=== PATIENT | female | born 1930 | race Caucasian/White ===

== ENCOUNTER 2018-04-02 19:20 | Emergency (ER) | payer MEDICARE, OTHER ==
[~2018-04-02] VITALS: Ht 160 cm; Wt 74.8 kg
[2018-04-02] MEDS ORDERED: NS IV 500 ML 500 ML IV ONE (19:29)
[2018-04-02] MEDS ORDERED: fentaNYL INJECTION 100 MCG/2 ML AMP IVP ONE (19:30)
[2018-04-02 19:37] LABS: BASOPHILS # (AUTO) 0.1 10^3/uL (0.0-0.1); BASOPHILS % (AUTO) 1 % (0-10); EOSINOPHILS # (AUTO) 0.4 10^3/uL (0.0-0.3); EOSINOPHILS % (AUTO) 4 % (0-10); HEMATOCRIT 29 % (35-52); HEMOGLOBIN 9.4 G/DL (11.5-16.0); LYMPHOCYTES # (AUTO) 5.1 X 10^3 (1.0-4.0); LYMPHOCYTES % (AUTO) 53 % (12-44); MEAN CORPUSCULAR HEMOGLOBIN 29 PG (25-34); MEAN CORPUSCULAR HGB CONC 33 G/DL (32-36); MEAN CORPUSCULAR VOLUME 89 FL (80-99); MEAN PLATELET VOLUME 11.5 FL (7.4-10.4); MONOCYTES # (AUTO) 0.8 X 10^3 (0.0-1.0); MONOCYTES % (AUTO) 8 % (0-12); NEUTROPHILS # (AUTO) 3.5 X 10^3 (1.8-7.8); NEUTROPHILS % (AUTO) 35 % (42-75); PLATELET COUNT 258 10^3/uL (130-400); RED BLOOD COUNT 3.22 10^6/uL (4.35-5.85); RED CELL DISTRIBUTION WIDTH 13.2 % (10.0-14.5); WHITE BLOOD COUNT 9.8 10^3/uL (4.3-11.0)
--- NOTE | 2018-04-02 19:39 | ED Syncope ---
General Stated Complaint: FALL @ [facility] Source of Information: Patient Exam Limitations: Physical Impairments History of Present Illness Date Seen by Provider: Apr 02, 2018 Time Seen by Provider: 19:26 Initial Comments Patient presents to the ER by EMS from the [facility] where staff stated that they witnessed her black out and fall of the ground striking her head and cutting her head open. They bandaged up her head and got the bleeding to stop by the time EMS got there. EMS reports that the sugar was reading as to high so they started fluids. Patient says this morning her blood sugar was around 347. She is diabetic and uses Levemir 16 units in the morning and 10 units at night and 2 units of NovoLog with each meal. She has not noted any nausea vomiting chest pain, fevers chills or sweats, dysuria or frequency of urine. She says she does not member what happened she was just with her at the [facility] when she blacked out. She woke up on the EMS cot. Patient states she is on blood thinners but cannot tell me what. She has a wound previously from running into a couch on her left brannon that is bandaged and she is on amoxicillin because she said it was looking infected. She follows with a doctor at [place], [place]. She is not feeling any nausea but she is having some pain over her right eye where the dressing is. Allergies and Home Medications Allergies Coded Allergies: Sulfa (Sulfonamide Antibiotics) (Verified Allergy, Unknown, 04/02/18) cetylpyridinium chloride (Verified Allergy, Unknown, 04/02/18) Patient Home Medication List Home Medication List Reviewed: Yes Constitutional: No chills, No diaphoresis, No fever, No malaise EENTM: hearing loss (chronic); No ear discharge, No ear pain Respiratory: No cough Cardiovascular: No chest pain, No palpitations; syncope Gastrointestinal: No abdominal pain, No constipation, No diarrhea, No nausea Genitourinary: No discharge, No dysuria Musculoskeletal: No back pain; joint pain (right hand fifth digit metatarsal) Skin: other (skin tear on her right hand and scalp) Past Dxvwvza-Viogjn-Ltrlyx Hx Patient Social History Alcohol Use: Denies Use Recreational Drug Use: No Smoking Status: Never a Smoker Physical Exam Vital Signs Vital Signs - First Documented 04/02/18 19:20 Pulse 74 Resp 20 B/P (MAP) 192/78 (116) Pulse Ox 97 O2 Delivery Room Air Capillary Refill : General Appearance: No Apparent Distress, WD/WN HEENT: PERRL/EOMI, Pharynx Normal; No Moist Mucous Membranes Neck: Tender Lateral (right), Other (c-collar in place) Cardiovascular: Regular Rate, Rhythm, No Edema, Normal Peripheral Pulses Respiratory: Chest Non Tender, Lungs Clear, Normal Breath Sounds, No Accessory Muscle Use, No Respiratory Distress Gastrointestinal: Normal Bowel Sounds, Non Tender, Soft Extremities: Normal Capillary Refill, Normal Inspection, Normal Range of Motion , Non Tender, No Calf Tenderness Neurologic/Psychiatric: Alert, Oriented x3, No Motor/Sensory Deficits, Normal Mood/Affect Cranial Nerves: Normal Hearing (chronic bilateral hearing loss), Normal Speech , PERRL Motor/Sensory: No Motor Deficit, No Sensory Deficit, No Pronator Drift, Negative Babinski's Sign Skin: Other (scalp laceration and skin laceration to right hand; stellate laceration above the right eye approximately 6 cm total length. Hemostatic. 1 cm superficial skin tear with a flap on the outside of the right hand fifth metatarsal.) Progress/Results/Core Measures Results/Orders Lab Results Laboratory Tests Test 04/02/18 19:28 04/02/18 19:29 Range/Units Glucometer 503 *H 70-110 MG/DL White Blood Count 9.8 4.3-11.0 10^3/uL Red Blood Count 3.22 L 4.35-5.85 10^6/uL Hemoglobin 9.4 L 11.5-16.0 G/DL Hematocrit 29 L 35-52 % Mean Corpuscular Volume 89 80-99 FL Mean Corpuscular Hemoglobin 29 25-34 PG Mean Corpuscular Hemoglobin Concent 33 32-36 G/DL Red Cell Distribution Width 13.2 10.0-14.5 % Platelet Count 258 130-400 10^3/uL Mean Platelet Volume 11.5 H 7.4-10.4 FL Neutrophils (%) (Auto) 35 L 42-75 % Lymphocytes (%) (Auto) 53 H 12-44 % Monocytes (%) (Auto) 8 0-12 % Eosinophils (%) (Auto) 4 0-10 % Basophils (%) (Auto) 1 0-10 % Neutrophils # (Auto) 3.5 1.8-7.8 X 10^3 Lymphocytes # (Auto) 5.1 H 1.0-4.0 X 10^3 Monocytes # (Auto) 0.8 0.0-1.0 X 10^3 Eosinophils # (Auto) 0.4 H 0.0-0.3 10^3/uL Basophils # (Auto) 0.1 0.0-0.1 10^3/uL Sodium Level 132 L 135-145 MMOL/L Potassium Level 4.3 3.6-5.0 MMOL/L Chloride Level 99 98-107 MMOL/L Carbon Dioxide Level 21 21-32 MMOL/L Anion Gap 12 5-14 MMOL/L Blood Urea Nitrogen 28 H 7-18 MG/DL Creatinine 1.47 H 0.60-1.30 MG/DL Estimat Glomerular Filtration Rate 34 BUN/Creatinine Ratio 19 Glucose Level 516 *H 70-105 MG/DL Calcium Level 8.6 8.5-10.1 MG/DL Magnesium Level 1.7 L 1.8-2.4 MG/DL Total Bilirubin 0.5 0.1-1.0 MG/DL Aspartate Amino Transf (AST/SGOT) 15 5-34 U/L Alanine Aminotransferase (ALT/SGPT) 14 0-55 U/L Alkaline Phosphatase 68 40-136 U/L Troponin I < 0.30 <0.30 NG/ML B-Type Natriuretic Peptide 68.5 <100.0 PG/ML Total Protein 6.1 L 6.4-8.2 GM/DL Albumin 3.7 3.2-4.5 GM/DL My Orders Orders - CELENA ABAD BNP (04/02/18 19:29) Cbc With Automated Diff (04/02/18 19:29) Comprehensive Metabolic Panel (04/02/18 19:29) Magnesium (04/02/18 19:29) Troponin I (04/02/18 19:29) Ua Culture If Indicated (04/02/18 19:29) Ct Head/Face/Cervical Wo (04/02/18 19:29) Saline Lock/Iv-Start (04/02/18 19:29) Chest 1 View, Ap/Pa Only (04/02/18 19:29) Hand, Right, 3 Views (04/02/18 19:29) Saline Lock/Iv-Start (04/02/18 19:29) Ns Iv 500 Ml (Sodium Chloride 0.9%) (04/02/18 19:29) Continuous Ekg Monitoring (04/02/18 19:29) Ekg Tracing (04/02/18 19:29) Fentanyl Injection (Sublimaze Injection (04/02/18 19:30) Ondansetron Injection (Zofran Injectio (04/02/18 21:00) Ondansetron Injection (Zofran Injectio (04/02/18 20:46) Insulin (Regular) Human (Humulin R (Per (04/02/18 21:00) Accucheck Stat ONCE (04/02/18 20:49) Accucheck Stat ONCE (04/02/18 20:49) Lidocaine 1% Inj 20 Ml (Xylocaine 1% Inj (04/02/18 21:15) Medications Given in ED Current Medications Medications Dose Ordered Sig/Tariq Route Start Time Stop Time Status Last Admin Dose Admin Fentanyl Citrate 50 mcg ONCE ONCE IVP 04/02/18 19:30 04/02/18 19:33 DC 04/02/18 19:40 50 MCG Insulin Human Regular 15 unit ONCE ONCE SC 04/02/18 21:00 04/02/18 21:01 DC 04/02/18 21:03 15 UNIT Lidocaine HCl 20 ml ONCE ONCE INJ 04/02/18 21:15 04/02/18 21:16 DC 04/02/18 21:05 20 ML Ondansetron HCl 4 mg ONCE ONCE IVP 04/02/18 21:00 04/02/18 21:01 DC 04/02/18 20:49 4 MG Sodium Chloride 500 ml @ 0 mls/hr Q0M ONCE IV 04/02/18 19:29 04/02/18 19:33 DC 04/02/18 19:40 500 MLS/HR Vital Signs/I&O 04/02/18 19:20 Pulse 74 Resp 20 B/P (MAP) 192/78 (116) Pulse Ox 97 O2 Delivery Room Air Progress Progress Note #1: Time: 19:38 Progress Note First we'll obtain a CT of her head maxillofacial and cervical spine. We'll get a chest x-ray as well as x-ray of her hand. We'll give her 50 g of fentanyl for her pain and let her get the full liter of IV fluids plus another 500 cc. Concern for her safety may be related to her blood sugar being too high and dehydration as she clinically appears to be dry. Patient is not forthcoming with any medical history and does not ever her medications other than her insulin. She is a poor historian Progress Note #2: Time: 21:08 Progress Note We'll give her 15 units of insulin regular IV for her high blood sugar and rechecked again in about half an hour. We will give her a dressing for the skin tear on her right hand and plan to use lidocaine and stitched up her forehead laceration. C-collar is cleared at 2049. Progress Note #3: Time: 22:10 Progress Note Patient was unable to provide a urine specimen without contamination so the family would prefer just to have it followed up outpatient by the PCP. They say that her falls due to high and low blood sugars has been an issue last several months and they're continuing to work on this with her PCP. She would like to discharge home's we are going to allow her to go. Initial ECG Impression Date: Apr 02, 2018 Initial ECG Impression Time: 19:43 Initial ECG Rate: 82 Initial ECG Rhythm: Normal Sinus Initial ECG Intervals: Normal Initial ECG Impression: Normal, Nonspecific Changes Comment No ST elevation or depression Diagnostic Imaging Diagonstic Imaging: Xray Plain Films/CT/US/NM/MRI: chest Comments [facility]IA [facility]. [place], [place] NAME: MARGOT SORTO [facility] REC#: [id number] PT STATUS: REG ER : 1930 PHYSICIAN: CELENA ABAD MD ADMIT DATE: 04/02/18/ER Draft Date of Exam:04/02/18 CHEST 1 VIEW, AP/PA ONLY Indication: Fall. Comparison: None available. Findings: Interstitial type opacities are present in the lung bases. No dense airspace consolidation. No pleural effusion or pneumothorax. The heart is enlarged. Normal pulmonary vasculature. Impression: 1. No evidence of acute traumatic injury in the chest by portable radiography. 2. Interstitial opacities in the lung bases are age indeterminate and could be chronic in nature. Dictated on workstation # [id number] Dict: 04/02/182021 Trans: 04/02/182043 [facility] [id number] Interpreted by: ARIADNA MONTES MD Electronically signed by: Reviewed: Reviewed by Ar Diagonstic Imaging: Xray Plain Films/CT/US/NM/MRI: other (hand) Comments VIA [place], [place] NAME: MARGOT SORTO [facility] REC#: [id number] PT STATUS: REG ER : 1930 PHYSICIAN: CELENA ABAD MD ADMIT DATE: 04/02/18/ER Draft Date of Exam:04/02/18 HAND, RIGHT, 3 VIEWS Indication: Hand pain after trauma. Comparison: None available. Technique: 3 views of right hand were obtained. Findings: No acute fracture or traumatic alignment. 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 Vascular calcifications are present. Impression: No acute osseous abnormality in the right hand. Dictated on workstation # [id number] Dict: 04/02/182028 Trans: 04/02/182042 [facility] [id number] Interpreted by: ARIADNA MONTES MD Electronically signed by: Reviewed: Reviewed by Ar Diagonstic Imaging: CT Plain Films/CT/US/NM/MRI: facial bones, c-spine, head Comments [facility]IA [place], [place] NAME: MARGOT SORTO [facility] REC#: [id number] PT STATUS: REG ER : 1930 PHYSICIAN: CELENA ABAD MD ADMIT DATE: 04/02/18/ER Draft Date of Exam:04/02/18 CT HEAD/FACE/CERVICAL WO PROCEDURE: CT head, face, and cervical spine without contrast. TECHNIQUE: Multiple contiguous axial images were obtained through the head, neck, and facial bones without the use of intravenous contrast. Sagittal and coronal reformations through the cervical spine and facial bones were also performed. INDICATION: Trauma to the head, facial and neck pain. COMPARISON: None available. FINDINGS: CT head: No hyperdense hemorrhage or space-occupying mass. No hydrocephalus or midline shift. 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 Periventricular white matter hypoattenuation is most compatible with chronic microvascular ischemic disease. No acute skull fracture. Right frontal scalp swelling with subcutaneous hematoma. Bilateral cataract surgeries has been performed. CT face: No acute fracture of the mid face or mandible. Specifically, there is no nasal fracture. Temporomandibular joints are normal in alignment with moderate degenerative changes present. The orbits are symmetric without evidence of globe rupture or retrobulbar hematoma. CT cervical spine: No acute fracture or traumatic malalignment of the cervical spine. Straightening of the cervical spine is likely degenerative in nature secondary to multilevel spondylitic changes. Disc osteophyte complex results in multilevel mild spinal canal narrowing. IMPRESSION: 1. No acute intracranial hemorrhage or skull fracture. 2. No acute fracture of the mid face or mandible. 3. No acute fracture or traumatic malalignment of the cervical spine. Dictated on workstation # [id number] Dict: 04/02/182016 Trans: 04/02/18 2040 [facility] [id number] Interpreted by: ARIADNA MONTES MD Electronically signed by: Reviewed: Reviewed by Me Departure Impression Primary Impression: Syncope and collapse Additional Impressions: Hyperglycemia Laceration of forehead Qualified Codes: S01.81XA - Laceration without foreign body of other part of head, initial encounter Skin tear of hand without complication Qualified Codes: S61.411A - Laceration without foreign body of right hand, initial encounter Disposition: 01 HOME, SELF-CARE Condition: Improved Departure-Patient Inst. Decision time for Depature: 22:11 Referrals: UNKNOWN (PCP) Primary Care Physician Patient Instructions: Concussion, Adult (DC) Add. Discharge Instructions: Clean your wound with soap and water and apply a thin layer of Vaseline at least once a day. You may wear a dressing or Band-Aid over it. Follow up with PCP or return to the nearest ER if you begin to experience nausea vomiting or fevers and chills. CELENA ABAD Apr 02, 2018 19:39
[2018-04-02 20:02] LABS: ALANINE AMINOTRANSFERASE 14 U/L (0-55); ALBUMIN 3.7 GM/DL (3.2-4.5); ALKALINE PHOSPHATASE 68 U/L (40-136); BILIRUBIN,TOTAL 0.5 MG/DL (0.1-1.0); BUN/CREATININE RATIO 19; CALCIUM 8.6 MG/DL (8.5-10.1); CARBON DIOXIDE 21 MMOL/L (21-32); CHLORIDE 99 MMOL/L (98-107); CREATININE SERUM 1.47 MG/DL (0.60-1.30); GFR ESTIMATED 34; MAGNESIUM 1.7 MG/DL (1.8-2.4); POTASSIUM 4.3 MMOL/L (3.6-5.0); SODIUM 132 MMOL/L (135-145); TOTAL PROTEIN 6.1 GM/DL (6.4-8.2)
[2018-04-02 20:06] LABS: GLUCOSE 516 MG/DL (70-105)
--- NOTE | 2018-04-02 20:40 | Diagnostic Imaging Report ---
PROCEDURE: CT head, face, and cervical spine without contrast. TECHNIQUE: Multiple contiguous axial images were obtained through the head, neck, and facial bones without the use of intravenous contrast. Sagittal and coronal reformations through the cervical spine and facial bones were also performed. INDICATION: Trauma to the head, facial and neck pain. COMPARISON: None available. FINDINGS: CT head: No hyperdense hemorrhage or space-occupying mass. No hydrocephalus or midline shift. 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 Periventricular white matter hypoattenuation is most compatible with chronic microvascular ischemic disease. No acute skull fracture. Right frontal scalp swelling with subcutaneous hematoma. Bilateral cataract surgeries has been performed. CT face: No acute fracture of the mid face or mandible. Specifically, there is no nasal fracture. Temporomandibular joints are normal in alignment with moderate degenerative changes present. The orbits are symmetric without evidence of globe rupture or retrobulbar hematoma. CT cervical spine: No acute fracture or traumatic malalignment of the cervical spine. Straightening of the cervical spine is likely degenerative in nature secondary to multilevel spondylitic changes. Disc osteophyte complex results in multilevel mild spinal canal narrowing. IMPRESSION: 1. No acute intracranial hemorrhage or skull fracture. 2. No acute fracture of the mid face or mandible. 3. No acute fracture or traumatic malalignment of the cervical spine. Dictated by: Dictated on workstation # [id number]
--- NOTE | 2018-04-02 20:43 | Diagnostic Imaging Report ---
Indication: Hand pain after trauma. Comparison: None available. Technique: 3 views of right hand were obtained. Findings: No acute fracture or traumatic alignment. 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 Vascular calcifications are present. Impression: No acute osseous abnormality in the right hand. Dictated by: Dictated on workstation # [id number]
--- NOTE | 2018-04-02 20:44 | Diagnostic Imaging Report ---
Indication: Fall. Comparison: None available. Findings: Interstitial type opacities are present in the lung bases. No dense airspace consolidation. No pleural effusion or pneumothorax. The heart is enlarged. Normal pulmonary vasculature. Impression: 1. No evidence of acute traumatic injury in the chest by portable radiography. 2. Interstitial opacities in the lung bases are age indeterminate and could be chronic in nature. Dictated by: Dictated on workstation # [id number]
[2018-04-02] MEDS ORDERED: ONDANSETRON 4 MG/2 ML (SDV) Z0FRAN ONE (20:46)
[2018-04-02] MEDS ORDERED: inSUlin (REGULAR) HUMAN 1 UNIT/0.01 ML (CHARGE PER UNIT) SC ONE (21:00)
[2018-04-02] MEDS ORDERED: ONDANSETRON 4 MG/2 ML (SDV) Z0FRAN IVP ONE (21:00)
[2018-04-02] MEDS ORDERED: LIDOCAINE 1% INJ 20 ML 20 ML VIAL INJ ONE (21:15)
[2018-04-02 22:26] VITALS: BP 150/88
== END 2018-04-02 22:26 | disposition home or self-care (01) ==
LOC: ER 19:21
DX: S01.81XA Laceration without foreign body of other part of head, initial encounter (principal); S61.411A Laceration without foreign body of right hand, initial encounter; E11.65 Type 2 diabetes mellitus with hyperglycemia; R55 Syncope and collapse; Z88.2 Allergy status to sulfonamides; Z88.8 Allergy status to other drugs, medicaments and biological substances; W01.10XA Fall on same level from slipping, tripping and stumbling with subsequent striking against unspecified object, initial encounter; Y92.59 Other trade areas as the place of occurrence of the external cause
CPT/HCPCS: 36415; 70450; 70486; 71045; 72125; 73130; 80053; 82962; 83735; 83880; 84484; 85025; 93005; 96361; 96372; 96374; 96375